=== PATIENT | female | born 1990 | race Two or more races ===

== ENCOUNTER → 2023-01-14 | Outpatient (CLI) | payer OTHER | END | disposition home or self-care (01) | LOC: NST 08:09 | PROVIDERS: ATTEND Obstetrics & Gynecology Maternal & Fetal Medicine | DX: Z34.83 Encounter for supervision of other normal pregnancy, third trimester (principal) ==

== ENCOUNTER 2023-01-19 09:44 | Outpatient (CLI) | payer OTHER | END 2023-01-19 10:30 | disposition home or self-care (01) | LOC: NST 09:44 | PROVIDERS: ATTEND Obstetrics & Gynecology Gynecology | DX: Z34.83 Encounter for supervision of other normal pregnancy, third trimester (principal) ==

== ENCOUNTER 2023-01-20 11:33 | Inpatient (IN) | payer OTHER ==
[~2023-01-20] VITALS: Ht 170.2 cm; Wt 76.2 kg
== END 2023-01-27 13:35 | disposition home or self-care (01) | DRG 807 ==
LOC: OB/GYN 11:33 → LDR 01-25 19:38 → OB/GYN 01-26 10:26
PROVIDERS: ADMIT Obstetrics & Gynecology Maternal & Fetal Medicine; ATTEND Obstetrics & Gynecology Maternal & Fetal Medicine
PROC: 10E0XZZ Delivery of Products of Conception, External Approach (ICD-10-PCS; principal; 2023-01-25)
PROC: 0KQM0ZZ Repair Perineum Muscle, Open Approach (ICD-10-PCS; 2023-01-25)
PROC: 0UQG7ZZ Repair Vagina, Via Natural or Artificial Opening (ICD-10-PCS; 2023-01-25)
PROC: 4A1HXCZ Monitoring of Products of Conception, Cardiac Rate, External Approach (ICD-10-PCS; 2023-01-25)
DX: O70.1 Second degree perineal laceration during delivery (principal); Z37.0 Single live birth; Z3A.40 40 weeks gestation of pregnancy; Z20.822 Contact with and (suspected) exposure to COVID-19

== ENCOUNTER 2023-01-22 09:21 | Outpatient (CLI) | payer OTHER | END 2023-01-22 10:22 | disposition home or self-care (01) | LOC: NST 09:21 | PROVIDERS: ATTEND Obstetrics & Gynecology Gynecology | DX: Z34.83 Encounter for supervision of other normal pregnancy, third trimester (principal) ==